=== PATIENT | female | born 1995 ===

== ENCOUNTER 2023-04-02 19:36 | Emergency (ER) | payer SELFPAY ==
[~2023-04-02] VITALS: Ht 175.3 cm; Wt 106.0 kg
[2023-04-02 20:01] VITALS: TEMP 98.4
[2023-04-02 20:27] VITALS: BP 145/83; PULSE 120; RESP 18
== END 2023-04-02 20:40 | disposition left against medical advice (07) ==
LOC: EMS 19:39
DX: R41.0 Disorientation, unspecified (principal); F17.210 Nicotine dependence, cigarettes, uncomplicated; F15.90 Other stimulant use, unspecified, uncomplicated
CPT/HCPCS: 99283; Z7502